=== PATIENT | female | born 1940 | race Caucasian/White ===

== ENCOUNTER 2024-05-17 14:15 | Emergency (ER) | payer MEDICARE, OTHER, SELFPAY ==
[2024-05-17 14:24] VITALS: BP 193/89
[2024-05-17] MEDS: NSS 500 IV (16:22)
[2024-05-17 16:26] VITALS: BP 169/93
[2024-05-17 16:35] LABS: % Basophils 0.2 % (0-2); % Immature Granulocytes 0.6 % (0-0.5); % Lymphocytes 10.5 % (20.5-51.1); % Monocytes 9.3 % (1.7-9.3); % Neutrophils 79.4 % (42.2-75.2); Absolute Immature Granulocytes 0.1 10^3/uL (0-0.05); Absolute Lymphocytes 1.1 10^3/uL (1.2-3.4); Absolute Monocytes 0.9 10^3/uL (0.1-0.6); Hemoglobin 12.3 g/dL (12.0-16.0); Mean Corp Hgb Conc. 33.2 g/dL (33.0-37.0); Mean Corpuscular Hgb 29.4 pg (27.0-31.0); Mean Corpuscular Volume 88.3 fL (81.0-99.0); Nucleated Red Blood Cells % 0 %; Platelet Count 223 10^3/uL (130-400); Red Blood Cell Count 4.19 10^6/uL (4.20-5.40); Red Cell Dist. Width 17.8 % (11.5-14.5); White Blood Cell Count 10.1 10^3/uL (4.8-10.8)
[2024-05-17 16:51] LABS: ALT (SGPT) 20 U/L (0-35); AST (SGOT) 33 U/L (14-36); Albumin 5.3 g/dl (3.5-5.0); Alkaline Phosphatase 53 U/L (38-126); Blood Urea Nitrogen 19 mg/dl (7-17); Calcium 10.5 mg/dl (8.4-10.2); Carbon Dioxide 27 mmol/L (22-30); Chloride 92 mmol/L (98-107); Glucose 107 mg/dl (70-99); Magnesium 2.2 mg/dl (1.6-2.3); Potassium 4.1 mmol/L (3.5-5.1); Sodium 129 mmol/L (135-145); Total Bilirubin 0.5 mg/dl (0.2-1.3); Total Protein 7.9 g/dl (6.3-8.2); eGFR > 60.00
[2024-05-17 16:56] LABS: Erythrocyte Sed Rate 12 mm/hour (0-20)
--- NOTE | 2024-05-17 16:57 | ED.GENMED ---
History of Present Illness
General
Chief Complaint: Headache
Source: patient
Exam Limitations: none
Time Seen by Provider: 05/17/24 15:32
Nursing documentation reviewed up to this point in time: agreed with
History of Present Illness
History of Present Illness:
84-year-old female with history as documented presents to the emergency room for evaluation of headache. Patient reports onset of symptoms 3 to 4 days ago and have been constant since that time. She reports initially she was having aching along
the jaw/TMJ since has progressed to the frontal region and last night she was also having some occipital pain. She describes an aching sensation. No clear triggering or relieving factors noted. Although she started with pain in the jaw she denies
any pain with mastication or trismus. She denies any dental pain. She denies any nausea or vomiting. Denies any neck pain. She denies any eye pain or change in her vision or speech. Denies focal weakness or numbness. Denies fevers or chills.
She denies any head trauma.
Past History
Past History
ED Past Medical History: Cancer, HTN, Hypercholesterolemia, Hypothyroidism and Other (Hyponatremia, macular degeneration,)
ED Past Surgical History: Negative Brain
Social History
Tobacco: Non-smoker
Alcohol: None
Drug: None
Personal:
Living: with family
Employment: Not employed
Family History
Family History: Other (Father with coronary disease, mother with breast cancer)
Review of Systems
Review of Systems
All Other Systems: ROS reviewed and negative except as documented in HPI and ROS
Constitutional: Denies fever or chills
EENT: Denies sore throat or runny nose
Respiratory: Denies cough or trouble breathing
Cardiac: Denies chest pain or palpitations
ABD/GI: Denies abdominal pain, nausea or vomiting
: Denies flank pain
Musculoskeletal: Denies neck pain or back pain
Neurological: Reports headache; Denies dizzy, weakness or numbness
Phy Exam
Physical Exam
Physical Exam:
General: Awake, alert, oriented x3; no acute distress
Head: Normocephalic, atraumatic
Face: Mild tenderness of TMJ bilaterally; NO tenderness along the temporal artery bilaterally
Eyes: Conjunctiva normal, EOMI, slight anisocoria right pupil slightly greater than left�patient reports prior cataract surgery on the right
Throat: Airway intact, handling secretions, good dentition with no dental caries or fractures noted and no tenderness to percussion
Neck: Trachea midline, supple without meningismus
Lungs: Clear to auscultation bilaterally, no wheezing, rales, rhonchi
Heart: Regular rate and rhythm, no murmurs, gallops, or rubs
Abd: Soft, non distended, nontender
Neuro: Cranial nerves intact 2 through 12, speech fluid with no dysarthria or aphasia, no motor or sensory deficits
Extremities: No edema in extremities, warm and well-perfused
Scores
Heart Failure Risk
Heart Failure Risk Score: Not Applicable
Heart Score for Chest Pain Patients
STEMI patient?: Not applicable
Withdrawal Assessment of Alcohol
Withdrawal Assessment Completed?: Not applicable
Course
Orders/Labs/Results
Orders:
Orders
05/17/24 15:37
CT Head W/o Iv Contrast Urgent
Comment:
Reason For Exam: headache
05/17/24 16:14
Complete Blood Count/With Diff Urgent
Comprehensive Metabolic Panel Urgent
ESR [Erythrocyte Sed Rate] Urgent
Magnesium Urgent
05/17/24 16:20
0.9% Sodium Chloride 500 ml [Nss] 500 ml IV BOLUS
05/17/24 17:59
Diphenhydramine [Benadryl] 25 mg IV NOW STA
Ketorolac [Toradol] 15 mg IV NOW STA
Metoclopramide [Reglan] 5 mg IV NOW STA
Abnormal Lab Results
05/17/24
16:14
RBC 4.19 L 10^6/uL
(4.20-5.40)
RDW 17.8 H %
(11.5-14.5)
Abs Immat Gran (auto) 0.1 H 10^3/uL
(0-0.05)
Absolute Neuts (auto) 8.0 H 10^3/uL
(1.4-6.5)
Absolute Lymphs (auto) 1.1 L 10^3/uL
(1.2-3.4)
Absolute Monos (auto) 0.9 H 10^3/uL
(0.1-0.6)
Immature Gran % 0.6 H %
(0-0.5)
Neutrophils % 79.4 H %
(42.2-75.2)
Lymphocytes % 10.5 L %
(20.5-51.1)
Sodium 129 L mmol/L
(135-145)
Chloride 92 L mmol/L
(98-107)
BUN 19 H mg/dl
(7-17)
Glucose 107 H mg/dl
(70-99)
Calcium 10.5 H mg/dl
(8.4-10.2)
Albumin 5.3 H g/dl
(3.5-5.0)
05/17/24 16:14
05/17/24 16:14
Vital Signs
Initial and Last Documented VS:
Initial Vital Signs
Temp Pulse Resp BP Pulse Ox
36.8 C 64 16 193/89 100
05/17/24 14:24 05/17/24 14:24 05/17/24 14:24 05/17/24 14:24 05/17/24 14:24
Last Documented Vital Signs
Temp Pulse Resp BP Pulse Ox
36.8 C 65 20 137/74 98
05/17/24 14:24 05/17/24 18:30 05/17/24 18:15 05/17/24 18:06 05/17/24 18:30
MDM/Problems Addressed
Differential Diagnosis Includes:
Sinus headache, tension headache, TMJ, brain mass, brain hemorrhage, temporal arteritis
MDM/Problems Addressed:
84-year-old female presents for atraumatic headache over the past few days�started with pain in the jaw since has migrated towards the frontal region and last night slightly in occipital region as well. Hypertensive but otherwise normal vitals.
Physical exam as above. Place an IV check labs including a CBC and a CMP, ESR. Check CT head. Will check screening EKG given jaw pain. Reassess after the above.
Labs reviewed: CBC and CMP significant for only mild hyponatremia�given IV fluids here. CT head negative for any acute pathology. Patient's ESR is normal, with no tenderness along the temporal artery, normal ESR low suspicion that this represents
a temporal arteritis. Treated symptomatically here with resolution of headache. Blood pressure normalized. My suspicion is that this may be tension headache possibly related to TMJ�patient says she has had TMJ in the past and has issue with
grinding teeth at night. I think she should follow-up with [facility] as well as for normal PCP. She feels comfortable with this plan. Spoke about return precautions all questions answered.
Chronic conditions affecting care:
Hypertension
Acute Exacerbation and/or Progression of Chronic Illness:
Acutely hypertensive
Acute Exacerbation and/or Progression of Chronic Illness: HTN
*Radiology
Radiology exam reviewed: radiology read reviewed
*Pulse Oximetry
Patient hypoxic: no
*Critical Care Note
Total Time (30-74mins, 75-104mins- exclusive of procedures): Not Applicable
Data Reviewed
Source: patient and family
ED Attending Note
-
Portions of this chart may have been created with voice recognition software.� Occasional wrong word or��sound alike� substitutions may have occurred due to the inherent limitations of voice recognition software.
Discharge Plan
Departure
Patient Disposition: Home (Routine Discharge)
Date of Disposition: 05/17/24
Time of Disposition: 19:43
Patient with high blood pressure during this ER visit?: Yes
Discharge Problem:
Headache, HTN (hypertension)
Instructions: Headache, Adult (DC), BLOOD PRESSURE
Prescriptions:
No Action
calcium carbonate 600 MG tablet
600 mg PO BID Qty: 0
cholecalciferol (vitamin D3) 1,000 UNITS tablet
1,000 units PO BID Qty: 0
biotin 2,500 MCG capsule
2,500 mcg PO QPM Qty: 0
atenolol 25 MG tablet
25 mg PO QPM
rosuvastatin 5 MG tablet
5 mg PO QPM
levothyroxine 88 MCG tablet
88 mcg PO DAILY
gabapentin 100 MG capsule
100 mg PO HS
Patient Comments:
08/03/2022: Pt states Dr was offering to increase prescription to TID due to continued shoulder pain
lisinopril 20 MG tablet
40 mg PO DAILY
amlodipine 2.5 MG tablet
2.5 mg PO HS
hydrocodone-acetaminophen 10-325 mg Tablet
1 tab PO TID PRN (Reason: moderate to severe pain)
Patient Comments:
08/03/2022: last filled 07/24/22, 90 tabs for 30 days from [facility]erVision AREDS [id number] Capsule
1 cap PO BID
magnesium
1 tab PO . DIRECTED
Rx Instructions:
Pt takes for 1 week in the beginning of the month. 7 days on, 21 days off.
pantoprazole [Protonix] 40 mg tablet,delayed release (DR/EC)
40 mg PO BID Qty: 60 0RF
Referrals:
Genet Mcleod DMD [Active] - Call in 1-3 days for appt
Yusra Mays MD [Family Provider] -
Activity Restrictions/Additional Instructions:
Thank you for visiting the Emergency Department at [facility].
1. Please schedule a follow up appointment as directed. Call first thing tomorrow morning to make an appointment.
2. If indicated, please take your medications as instructed and indicated on discharge paperwork.
3. If any of your symptoms do not improve, or persist, or become more severe within 6-12 hours, please return to the emergency department for further care.
4. Please return to the emergency department if you develop a headache, neck pain/stiffness, fever greater than 100.4F, chest pain, shortness of breath, persistent nausea, vomiting, slurred speech, difficulty walking, numbness/tingling, weakness,
signs of infection or any other symptoms that are worrisome to you.
Please call [phone] if you have any questions.
Interventions
Interventions:
*Risk Screen - Suicide Last Done: 05/17/24 16:28
*General Assessment Last Done: 05/17/24 14:24
*Neglect/Abuse Screening Last Done: 05/17/24 16:28
*ED COVID-19 Vaccine History Last Done: 05/17/24 14:24
ED- Neurological Assessment Last Done: 05/17/24 16:26
Discharge Date and Time
Print Language: BENGALI
[2024-05-17] MEDS: REGLAN 5 MG IV (18:05)
[2024-05-17 18:06] VITALS: BP 137/74
[2024-05-17] MEDS: TORADOL 15 MG IV (18:06)
[2024-05-17] MEDS: BENADRYL 25 MG IV (18:06)
== END 2024-05-17 20:09 | disposition home or self-care (01) ==
LOC: EMR 14:15
PROVIDERS: EMERGENCY PHYSICIAN Emergency Medicine; FAMILY PHYSICIAN Family Medicine
DX: R51.9 Headache, unspecified (principal); R68.84 Jaw pain; I10 Essential (primary) hypertension; E03.9 Hypothyroidism, unspecified; E78.00 Pure hypercholesterolemia, unspecified; H35.30 Unspecified macular degeneration; D50.9 Iron deficiency anemia, unspecified; F32.A Depression, unspecified; M54.32 Sciatica, left side; G25.81 Restless legs syndrome; I73.00 Raynaud's syndrome without gangrene; K57.90 Diverticulosis of intestine, part unspecified, without perforation or abscess without bleeding; K21.9 Gastro-esophageal reflux disease without esophagitis; K58.9 Irritable bowel syndrome, unspecified; M19.90 Unspecified osteoarthritis, unspecified site; Z85.828 Personal history of other malignant neoplasm of skin; Z88.1 Allergy status to other antibiotic agents; Z88.5 Allergy status to narcotic agent; Z88.8 Allergy status to other drugs, medicaments and biological substances; Z91.048 Other nonmedicinal substance allergy status
CPT/HCPCS: 99284; 96374; 96375 ×2; 96361; 70450; 80053; 83735; 85025; 85652; 93005

== ENCOUNTER → 2024-12-02 14:07 | Outpatient (REF) | payer MEDICARE, OTHER, SELFPAY | LOC: RCS 14:07 | PROVIDERS: ATTENDING PHYSICIAN Nurse Practitioner; FAMILY PHYSICIAN Family Medicine | DX: R01.1 Cardiac murmur, unspecified (principal) | CPT/HCPCS: 93306 ==

== ENCOUNTER 2025-07-19 10:21 | Emergency (ER) | payer MEDICARE, OTHER, SELFPAY ==
[2025-07-19 10:32] VITALS: BP 176/86
[2025-07-19 12:18] VITALS: BMI 23.9
[2025-07-19 12:39] LABS: Hematocrit 34.4 % (37.0-47.0); Hemoglobin 10.9 g/dL (12.0-16.0); Mean Corp Hgb Conc. 31.7 g/dL (33.0-37.0); Mean Corpuscular Volume 95.8 fL (81.0-99.0); Nucleated Red Blood Cells % 0 %; Platelet Count 207 10^3/uL (130-400); Red Cell Dist. Width 14.3 % (11.5-14.5)
[2025-07-19 12:42] VITALS: BP 175/80
[2025-07-19 12:50] LABS: INR 0.93; PT 12.8 Sec (11.4-14.6)
[2025-07-19 12:51] LABS: APTT 32.9 Sec (23.4-35.0)
[2025-07-19 12:55] LABS: ALT (SGPT) 17 U/L (0-35); AST (SGOT) 25 U/L (14-36); Albumin 4.2 g/dl (3.5-5.0); Alkaline Phosphatase 48 U/L (38-126); Blood Urea Nitrogen 19 mg/dl (7-17); Calcium 10.2 mg/dl (8.4-10.2); Carbon Dioxide 31 mmol/L (22-30); Chloride 99 mmol/L (98-107); Estimated Creatinine Clearance 40 ml/min; Glucose 88 mg/dl (70-99); Potassium 3.9 mmol/L (3.5-5.1); Sodium 133 mmol/L (135-145); Total Protein 6.8 g/dl (6.3-8.2); eGFR > 60.00
[2025-07-19 12:58] LABS: C-Reactive Protein < 5.00 mg/L (0.0-10.00)
--- NOTE | 2025-07-19 13:13 | ED.GENMED ---
History of Present Illness
<Senait Burgess PA-C - Last Filed: 07/21/25 06:28>
General
Chief Complaint: Skin Problem
Time Seen by Provider: 07/19/25 11:17
History of Present Illness
History of Present Illness:
see MDM
Past History
<Senait Burgess PA-C - Last Filed: 07/21/25 06:28>
Past History
ED Past Medical History: Cancer, HTN, Hypercholesterolemia, Hypothyroidism and Other (Hyponatremia, macular degeneration,)
ED Past Surgical History: Negative Brain
Social History
Tobacco: Non-smoker
Alcohol: None
Drug: None
Personal:
Living: with family
Employment: Not employed
Family History
Family History: Other (Father with coronary disease, mother with breast cancer)
Phy Exam
<Senait Burgess PA-C - Last Filed: 07/21/25 06:28>
Physical Exam
Physical Exam:
Temperature was 98.4
GENERAL: Alert , in no apparent distress
EYE: pupils equal and reactive
NECK: Supple
ENT: o/p clr, mmm.
CARDIAC: Regular rate and rhythm . DP pulse intact
LUNGS: Clear breath sounds bilaterally, no acute respiratory distress, no wheezes/rales/rhonchi
ABDOMEN: Soft, without focal tenderness, no r/g, no cvat, normal bowel sounds
NEUROLOGICAL: Alert and oriented, no focal neuro deficits
SKIN: Warm and dry, skin intact.
Patient has some very faint hyperpigmentation to bilateral lower extremities, very faint pink changes to the anterior blackwell on the right leg which is compared to the left side and is much more mild than the left, the patient's left lower extremity
from mid blackwell down to the ankle is slightly more pink but not overly warm
She has equal pulses
MUSCULOSKELETAL: Very mild nonpitting left lower extremity edema edema, well perfused. neg kelsey's sign her left
Lower leg is hypersensitive
PSYCH: Normal and appropriate interaction.
Course
<Senait Burgess PA-C - Last Filed: 07/21/25 06:28>
Orders/Labs/Results
Orders:
Orders
07/19/25 11:44
CT Lower Ext W/iv Cont Lt Urgent
Comment:
Reason For Exam: worsening chronic LLE redness, pain, eval infectio
07/19/25 12:27
CRP [C-Reactive Protein] Urgent
Complete Blood Count/With Diff Urgent
Comprehensive Metabolic Panel Urgent
Erythrocyte Sed Rate Urgent
PTT Urgent
Prothrombin Time Urgent
07/19/25 15:24
Prednisone [Deltasone] 40 mg PO NOW STA
Abnormal Lab Results
07/19/25
12:27
RBC 3.59 L 10^6/uL
(4.20-5.40)
Hgb 10.9 L g/dL
(12.0-16.0)
Hct 34.4 L %
(37.0-47.0)
MCHC 31.7 L g/dL
(33.0-37.0)
Absolute Lymphs (auto) 1.0 L 10^3/uL
(1.2-3.4)
Absolute Monos (auto) 0.8 H 10^3/uL
(0.1-0.6)
Lymphocytes % 13.9 L %
(20.5-51.1)
Monocytes % 11.0 H %
(1.7-9.3)
ESR 21 H mm/hour
(0-20)
Sodium 133 L mmol/L
(135-145)
Carbon Dioxide 31 H mmol/L
(22-30)
BUN 19 H mg/dl
(7-17)
07/19/25 12:27
07/19/25 12:27
Vital Signs
Initial and Last Documented VS:
Initial Vital Signs
Pulse Resp BP Pulse Ox
73 18 176/86 97
07/19/25 10:32 07/19/25 10:32 07/19/25 10:32 07/19/25 10:32
Last Documented Vital Signs
Pulse Resp BP Pulse Ox
73 18 175/99 99
07/19/25 10:32 07/19/25 10:32 07/19/25 15:51 07/19/25 13:16
<Shiva Copeland, DO - Last Filed: 07/19/25 13:17>
Orders/Labs/Results
Orders:
Orders
07/19/25 11:44
CT Lower Ext W/iv Cont Lt Urgent
Comment:
Reason For Exam: worsening chronic LLE redness, pain, eval infectio
07/19/25 12:27
CRP [C-Reactive Protein] Urgent
Complete Blood Count/With Diff Urgent
Comprehensive Metabolic Panel Urgent
Erythrocyte Sed Rate Urgent
PTT Urgent
Prothrombin Time Urgent
07/19/25 15:24
Prednisone [Deltasone] 40 mg PO NOW STA
Abnormal Lab Results
07/19/25
12:27
RBC 3.59 L 10^6/uL
(4.20-5.40)
Hgb 10.9 L g/dL
(12.0-16.0)
Hct 34.4 L %
(37.0-47.0)
MCHC 31.7 L g/dL
(33.0-37.0)
Absolute Lymphs (auto) 1.0 L 10^3/uL
(1.2-3.4)
Absolute Monos (auto) 0.8 H 10^3/uL
(0.1-0.6)
Lymphocytes % 13.9 L %
(20.5-51.1)
Monocytes % 11.0 H %
(1.7-9.3)
ESR 21 H mm/hour
(0-20)
Sodium 133 L mmol/L
(135-145)
Carbon Dioxide 31 H mmol/L
(22-30)
BUN 19 H mg/dl
(7-17)
07/19/25 12:27
07/19/25 12:27
Vital Signs
Initial and Last Documented VS:
Initial Vital Signs
Pulse Resp BP Pulse Ox
73 18 176/86 97
07/19/25 10:32 07/19/25 10:32 07/19/25 10:32 07/19/25 10:32
Last Documented Vital Signs
Pulse Resp BP Pulse Ox
73 18 175/99 99
07/19/25 10:32 07/19/25 10:32 07/19/25 15:51 07/19/25 13:16
<Senait Burgess PA-C - Last Filed: 07/21/25 06:28>
MDM/Problems Addressed
Differential Diagnosis Includes:
see MDM
MDM/Problems Addressed:
Note:
CHIEF COMPLAINT(S)
Pain, hypersensitivity, and swelling in the left leg.
HISTORY OF PRESENT ILLNESS
The patient is an 85-year-old female presenting with complaints of pain and hypersensitivity in the left leg, which began around the beginning of June. Initially, she experienced similar symptoms in her right leg, but they are currently more
severe in the left leg. The pain is described as stinging, stabbing, burning, and pulsating, accompanied by hypersensitivity that makes dressing difficult. she has had a worsening redness as well to the lower half of the lower leg, above the ankle.
The patients symptoms worsen with walking, and she reports the inability to tolerate pressure on the leg.
The patient has undergone various investigations including ultrasounds and Dopplers, which have been inconclusive. Recent arterial Dopplers came back normal. She reports swelling and visible redness, with the redness worsening when not using
compression stockings. The redness seems to increase in the evening without the stocking and decreases when wearing support. She notes that her molder trimmer ordered a CT scan due to concerns for possible infection or abscess, given her symptoms. No
fever was reported during recent assessments.
She also recently had arterial duplex last week at [facility] which was reportedly negative. Patient tried to make an appointment with Dr. Hook from vascular surgery but the vascular office said that because her study was normal she does not need to
be seen there.
she has been treated with aspirin, warm compresses, and pain medications without significant relief. Thrombophlebitis was mentioned as a previous finding, though she states there has been no confirmed deep vein thrombosis.
PAST MEDICAL HISTORY
- Hypertension
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
CHRONIC MEDICAL CONDITIONS SIGNIFICANTLY AFFECTING CARE
Hypertension
SOCIAL HISTORY
The patient reports using a walker due to the severity of leg pain, which has impacted her daily life and ability to move independently.
MEDICATIONS
Aspirin (three times a day with meals)
PHYSICAL EXAM
- Skin redness on the left leg, extending upwards from the lower extremity
- Swelling noted in the left leg, particularly when not using compression stockings
Nursing notes reviewed and vital signs reviewed.
PLAN
1. Order blood tests to evaluate kidney function and ensure the safety of administering contrast for the CT scan.
2. Review results with Dr. Sheffield or contact the physician store operations associate for further recommendations.
3. Consider referral to rheumatology if autoimmune vasculitis is suspected based on the examination.
4. Evaluate for infection and possible need for rheumatology consult based on diagnostic findings.
DIFFERENTIAL DIAGNOSIS
The Differential Diagnosis includes, in no particular order and is not limited to:
1. Venous stasis dermatitis
2. Cellulitis
3. Autoimmune vasculitis
4. Peripheral artery disease
5. Deep vein thrombosis
6. Chronic venous insufficiency
7. Diabetic neuropathy
8. Gout
9. Lymphedema
10. Thrombophlebitis
07/19/25 - 15:24
pt here for chronic LLE sensitiviy, skin redness, swelling
has had many testing for this without true diagnois
sounds like she has been told of mild venous insufficiency but i cannot see reports
today pt requesting CT scan her molder trimmer ordered for this leg pain and redness
it does not look like cellulitlis/abscess but CT was ordered
Patients blood work and CAT scan results are reassuring, with normal white blood cell count and no signs of acute inflammation or abscess. Current symptoms of leg pain and redness likely due to vasculitis or venous insufficiency, not cellulitis.
Plan includes reducing aspirin to 81 mg or stopping, and starting oral prednisone short-term at 40 mg today followed by 20 mg for five days, prioritizing safety due to history of GI bleed. Gabapentin to be increased to 300 mg at night to manage
pain. Encouraged to schedule dermatology and vascular consultations for biopsy and assessment. Avoids invasive treatment on sensitive skin. If symptoms persist, reassessment of aspirin and potential topical steroid use may be considered.
she was heme neg brown stool
h/o gastritis previously; informed to watch for black stool
stop the asa 325 tid which is what she was told to take by cards
<Senait Burgess PA-C - Last Filed: 07/21/25 06:28>
*Pulse Oximetry
SaO2: 97
Oxygen Mode of Delivery: Room air
Patient hypoxic: no (97)
*Critical Care Note
Total Time (30-74mins, 75-104mins- exclusive of procedures): Not Applicable
ED Attending Note
<Senait Burgess PA-C - Last Filed: 07/21/25 06:28>
-
Portions of this chart may have been created with voice recognition software.� Occasional wrong word or��sound alike� substitutions may have occurred due to the inherent limitations of voice recognition software.
<Shiva Copeland DO - Last Filed: 07/19/25 13:17>
ED Attending Note
Patient seen and examined by attending physician: Yes
I performed the substantive portion of visit, reviewed & personally made and approve the management plan that is documented in note by myself or NHUNG.: Yes
Discharge Plan
Departure
Patient Disposition: Home (Routine Discharge)
Date of Disposition: 07/19/25
Time of Disposition: 15:24
Patient with high blood pressure during this ER visit?: Yes
Discharge Problem:
Left leg swelling, Venous stasis dermatitis
Instructions: Varicose Veins (DC)
Prescriptions:
New
prednisone 20 mg tablet
20 mg PO DAILY Qty: 5 0RF
No Action
calcium carbonate 600 MG tablet
600 mg PO BID Qty: 0
cholecalciferol (vitamin D3) 1,000 UNITS tablet
1,000 units PO BID Qty: 0
biotin 2,500 MCG capsule
2,500 mcg PO QPM Qty: 0
atenolol 25 MG tablet
25 mg PO QPM
rosuvastatin 5 MG tablet
5 mg PO QPM
levothyroxine 88 MCG tablet
88 mcg PO DAILY
gabapentin 100 MG capsule
100 mg PO HS
Patient Comments:
08/03/2022: Pt states Dr was offering to increase prescription to TID due to continued shoulder pain
lisinopril 20 MG tablet
40 mg PO DAILY
amlodipine 2.5 MG tablet
2.5 mg PO HS
hydrocodone-acetaminophen 10-325 mg Tablet
1 tab PO TID PRN (Reason: moderate to severe pain)
Patient Comments:
08/03/2022: last filled 07/24/22, 90 tabs for 30 days from [facility] AREDS [id number] Capsule
1 cap PO BID
magnesium
1 tab PO . DIRECTED
Rx Instructions:
Pt takes for 1 week in the beginning of the month. 7 days on, 21 days off.
pantoprazole [Protonix] 40 mg tablet,delayed release (DR/EC)
40 mg PO BID Qty: 60 0RF
Referrals:
Rylie Soni, [Active, Dermatology] - Follow up in 5-7 days
Yusra Mays MD [Family Provider]
Activity Restrictions/Additional Instructions:
We do not believe that this is an acute infection of the skin. Your blood work was reassuring. You should see a brush stainer, to consider that this might be vasculitis. We are going to try treating it with a steroid to see if it helps. Take
prednisone 20 mg once a day for 5 days starting tomorrow.
You should also stop the full dose aspirin 3 times a day, this is a very high dose. You can go back to baby aspirin once a day, make sure to take your omeprazole while you are on steroids. Watch for black stool and return as needed.
The CT report is also printed with your paperwork. Follow-up with Dr. Munguia of her and your family doctor as well. You can increase your gabapentin 100 mg, either 1 extra pill in the morning or 1 extra pill at night.
Interventions
Interventions:
*Risk Screen - Suicide Last Done: 07/19/25 10:38
*General Assessment Last Done: 07/19/25 10:38
*Neglect/Abuse Screening Last Done: 07/19/25 10:45
*ED- Fall Risk Assessment Last Done: 07/19/25 16:11
*ED COVID-19 Vaccine History Last Done: 07/19/25 10:45
*ED Influenza Vaccine History Last Done: 07/19/25 10:45
*Nursing Disposition Last Done: 07/19/25 16:11
ED-Skin Assessment Last Done: 07/19/25 15:24
Discharge Date and Time
Discharge Date/Time: 07/19/25 16:12
Print Language: GERMAN
[2025-07-19] MEDS: DELTASONE 40 MG PO (15:48)
[2025-07-19 15:51] VITALS: BP 175/99
== END 2025-07-19 16:12 | disposition home or self-care (01) ==
LOC: EMR 10:21
PROVIDERS: Physician Assistant; EMERGENCY PHYSICIAN Emergency Medicine; FAMILY PHYSICIAN Family Medicine
DX: R22.42 Localized swelling, mass and lump, left lower limb (principal); I87.2 Venous insufficiency (chronic) (peripheral); I10 Essential (primary) hypertension; E78.00 Pure hypercholesterolemia, unspecified; E03.9 Hypothyroidism, unspecified; E87.1 Hypo-osmolality and hyponatremia; H35.30 Unspecified macular degeneration; Z80.3 Family history of malignant neoplasm of breast; Z82.49 Family history of ischemic heart disease and other diseases of the circulatory system; Z96.652 Presence of left artificial knee joint
CPT/HCPCS: 99284; 73701; 80053; 85025; 85610; 85652; 85730; 86140; Q9967

== ENCOUNTER → 2025-08-03 11:06 | Outpatient (REF) | payer MEDICARE, OTHER, SELFPAY | LOC: RAD 11:06 | PROVIDERS: ATTENDING PHYSICIAN Family Medicine; OTHER PHYSICIAN Surgery Vascular Surgery | DX: R60.0 Localized edema (principal) | CPT/HCPCS: 93970 ==

== ENCOUNTER → 2025-08-29 13:15 | Outpatient (REF) | payer MEDICARE, OTHER, SELFPAY | LOC: MRI 3T 13:15 | PROVIDERS: ATTENDING PHYSICIAN Family Medicine | DX: M54.16 Radiculopathy, lumbar region (principal) | CPT/HCPCS: 72148 ==

== ENCOUNTER → 2025-09-14 14:27 | Outpatient (REF) | payer MEDICARE, OTHER, SELFPAY | LOC: RAD 14:27 | PROVIDERS: ATTENDING PHYSICIAN Surgery Vascular Surgery; FAMILY PHYSICIAN Family Medicine | DX: I73.9 Peripheral vascular disease, unspecified (principal) | CPT/HCPCS: 75635; Q9967 ==